=== PATIENT | male | born 1950 | race Hispanic/Latino ===

== ENCOUNTER → 2017-10-27 | Outpatient (CLI) | payer OTHER, MEDICARE ==
[~2017-10-27] MED LIST: AMLO5TAB2 PO; CANA300T PO; INSLAN SQ; LISI40TA4 PO; OXYBUTYNIN PO; TAMS0.4C32 PO
== END | disposition home or self-care (01) ==
LOC: SHCH 13:32
PROVIDERS: ATTEND Internal Medicine Cardiovascular Disease
DX: I87.2 Venous insufficiency (chronic) (peripheral) (principal)
CPT/HCPCS: 93970